=== PATIENT | male | born 1995 | race Caucasian/White ===

== ENCOUNTER 2023-07-09 17:14 | Outpatient (CLI) | payer MEDICAID | END 2023-07-09 23:59 | disposition critical access hospital (66) | LOC: EMS 17:14 | DX: Z04.6 Encounter for general psychiatric examination, requested by authority (principal); R46.2 Strange and inexplicable behavior; R45.850 Homicidal ideations | CPT/HCPCS: A0425; A0429; A0999 ==

== ENCOUNTER 2023-07-09 17:17 | Emergency (ER) | payer MEDICAID ==
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
[2023-07-09 19:17] LABS: BASOPHILS # (AUTO) 0.1 10^3/uL (0.0-0.1); BASOPHILS % (AUTO) 0.8 %; EOSINOPHILS # (AUTO) 0.2 10^3/uL (0.0-0.7); EOSINOPHILS % (AUTO) 3.6 %; HCT - HEMATOCRIT 47.4 % (42.0-52.0); LYMPHOCYTES # (AUTO) 1.1 10^3/uL (1.5-3.5); LYMPHOCYTES % (AUTO) 17.5 %; MEAN CORPUSCULAR HEMOGLOBIN 29.7 pg (27.0-31.0); MEAN CORPUSCULAR HGB CONC 33.8 g/dL (32.0-36.0); MEAN CORPUSCULAR VOLUME 87.9 fL (80.0-94.0); MEAN PLATELET VOLUME 10.2 fL (7.4-11.4); MONOCYTES # (AUTO) 0.6 10^3/uL (0.0-1.0); MONOCYTES % (AUTO) 9.6 %; NEUTROPHILS # (AUTO) 4.2 10^3/uL (1.5-6.6); NEUTROPHILS % (AUTO) 68.3 %; PLT - PLATELET COUNT 255 10^3/uL (130-450); RED BLOOD COUNT 5.39 10^6/uL (4.70-6.10); RED CELL DISTRIBUTION WIDTH 12.1 % (12.0-15.0); WHITE BLOOD COUNT 6.2 x10^3/uL (4.8-10.8)
[2023-07-09 19:30] LABS: VALPROIC ACID (DEPAKOTE) 27.9 ug/mL
[2023-07-09 19:31] LABS: ACETAMINOPHEN 0.3 ug/mL; ALBUMIN 4.8 g/dL (3.2-5.5); ALBUMIN/GLOBULIN RATIO 1.4 (1.0-2.2); ALKALINE PHOSPHATASE 53 IU/L (42-121); ALT ALANINE AMINOTRANSFERASE 25 IU/L (10-60); AST ASPARTATE AMINOTRANSFERASE 31 IU/L (10-42); BILIRUBIN,TOTAL 0.6 mg/dL (0.2-1.0); BUN - BLOOD UREA NITROGEN 14 mg/dL (6-20); CALCIUM 10.4 mg/dL (8.5-10.3); CARBON DIOXIDE - CO2 27 mmol/L (21-32); CHLORIDE 103 mmol/L (101-111); CK- CREATINE KINASE 441 IU/L (30-223); CREATININE 0.9 mg/dL (0.6-1.3); ETOH - ETHANOL < 10.0 mg/dL; GFR - MDRD 101 (>89); GLUCOSE 97 mg/dL (74-104); LIPASE 28 U/L (11-82); MAGNESIUM 1.9 mg/dL (1.7-2.3); SODIUM 138 mmol/L (135-145); TOTAL PROTEIN 8.3 g/dL (6.4-8.9)
[2023-07-09 19:32] LABS: SALICYLATE < 1.5 mg/dL
[2023-07-09 19:45] LABS: THYROID STIMULATING HORMONE 1.15 uIU/mL (0.34-5.60)
[2023-07-09] MEDS: OLANZapine ODT 5 MG TABLET TL STA (20:27)
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
[2023-07-09 21:29] LABS: BILIRUBIN,URINE NEGATIVE (NEGATIVE); GLUCOSE, URINE (UA) NEGATIVE (NEGATIVE); KETONES,URINE (UA) NEGATIVE (NEGATIVE); LEUKOCYTE ESTERASE, URINE NEGATIVE (NEGATIVE); NITRITE,URINE NEGATIVE (NEGATIVE); OCCULT BLOOD,URINE NEGATIVE (NEGATIVE); PH,URINE 7.5 PH (5.0-7.5); PROTEIN,URINE TRACE mg/dL (NEGATIVE); UROBILINOGEN,URINE 1 (NORMAL) E.U./dL (NORMAL)
[2023-07-09 21:49] LABS: CLARITY,URINE CLEAR (CLEAR)
[2023-07-09 21:50] LABS: AMPHETAMINE SCREEN,URINE NEGATIVE (NEGATIVE); BARBITURATE SCREEN,UR NEGATIVE (NEGATIVE); BENZODIAZEPINES SCREEN, URINE NEGATIVE (NEGATIVE); BUPRENORPHINE SCREEN, URINE NEGATIVE (NEGATIVE); COCAINE SCREEN URINE NEGATIVE (NEGATIVE); METHADONE SCREEN, URINE NEGATIVE (NEGATIVE); METHAMPHETAMINES SCREEN, URINE NEGATIVE (NEGATIVE); OPIATE SCREEN, URINE NEGATIVE (NEGATIVE); OXYCODONE SCREEN, URINE NEGATIVE (NEGATIVE); THC CANNABINOID SCREEN, URINE POSITIVE (NEGATIVE); TRICYCLIC ANTIDEPRESSANT,URINE NEGATIVE (NEGATIVE)
[2023-07-09] MEDS: LORazepam 2 MG/ML VIAL IM STA (22:28)
[2023-07-09] MEDS: HALOPERIDOL 5 MG/ML VIAL IM STA (22:28)
[2023-07-10 02:24] VITALS: BP 145/89; O2SAT 99
[2023-07-10] MEDS: OLANZapine ODT 5 MG TABLET TL STA (08:05)
--- NOTE | 2023-07-25 09:33 | ED Physician Documentation ---
ED Addendum - Addendum Addendum: 07/25/23 09:32 CLINICAL IMPRESSION: psychosis, paranoid delusions
== END 2023-07-10 08:17 ==
LOC: ED 17:17
DX: F29 Unspecified psychosis not due to a substance or known physiological condition (principal); F22 Delusional disorders; F31.9 Bipolar disorder, unspecified; Z79.899 Other long term (current) drug therapy
CPT/HCPCS: 36415; 80053; 80143; 80164; 80179; 80306; 81003; 82077; 82550; 83690; 83735; 84443; 85025; 87635; 99285; A9270; 81001; 87086